=== PATIENT | female | born 1950 | race Caucasian/White ===

== ENCOUNTER 2016-11-22 13:58 | Emergency (ER) | payer OTHER ==
[~2016-11-22] VITALS: Ht 165.1 cm; Wt 78.3 kg
[2016-11-22 15:15] LABS: ADD MIUA? YES; BILIRUBIN NEGATIVE; BLOOD NEGATIVE; COLOR STRAW ((YELLOW)); GLUCOSE (STRIP) NEGATIVE; KETONES NEGATIVE; LEUKOCYTES TRACE; NITRITE NEGATIVE; PROTEIN (STRIP) NEGATIVE; SPECIFIC GRAVITY 1.006 (1.000-1.030); UROBILINOGEN 0.2 MG/DL (0.2-1.0)
[2016-11-22 15:20] LABS: BACTERIA RARE /HPF; EPITHELIAL CELLS RARE /HPF; MUCUS TRACE /LPF; RED BLOOD CELLS 0-5 /HPF (0-5); UCUL ADDED? NO; WHITE BLOOD CELLS 0-5 /HPF (0-5)
[2016-11-22 15:34] LABS: EOSINOPHIL (%) 1.8 % (0-5); EOSINOPHIL COUNT 0.1 K/uL (0-0.3); HEMATOCRIT 37.3 % (36.0-46.0); IMMATURE GRANULOCYTE (%) 0.4 % (0.0-0.7); LYMPHOCYTE COUNT 0.9 K/uL (1.0-2.8); MCH 30.6 PG (29.0-34.0); MCHC 33.8 G/DL (30.0-36.0); MCV 90.5 FL (83-99); MEAN PLAT.VOLUME 10.9 uM^3 (9.5-12.4); MONOCYTE (%) 10.1 % (3-12); MONOCYTE COUNT 0.5 K/uL (0-0.8); NEUTROPHIL (%) 66.6 % (45-76); PLATELET COUNT 207 K/uL (156-360); RBC DIS.WIDTH-CV 12.7 % (11.8-14.6); RBC DIS.WIDTH-SD 41.9 % (39-53); RED BLOOD COUNT 4.12 M/uL (3.80-5.20); WHITE BLOOD COUNT 4.5 K/uL (4.1-10.2)
[2016-11-22 15:44] LABS: CHLORIDE 108 mEq/L (99-109)
[2016-11-22 15:45] LABS: D-DIMER ELISA 0.19 mg/L FEU (< 0.57); POTASSIUM 4.1 mEq/L (3.7-5.4); SODIUM 140 mEq/L (136-147)
[2016-11-22 15:47] LABS: GLUCOSE 107 mg/dL (70-99)
[2016-11-22 15:48] LABS: ANION GAP 8 MEQ/L (2-14)
[2016-11-22 15:49] LABS: TOTAL BILIRUBIN 0.3 mg/dL (0.0-1.0)
[2016-11-22 15:50] LABS: ALKALINE PHOSPHATASE 79 IU/L (3-129); GFR ESTIMATE (CALCULATED) > 59 mL/min/
[2016-11-22 15:52] LABS: UREA NITROGEN (BUN) 13 mg/dL (9-23)
[2016-11-22 15:54] LABS: TROP-I INTERPRETATION NEGATIVE; TROPONIN-I < 0.01 ng/mL (0.0-0.30)
[2016-11-22 18:03] LABS: TROP-I INTERPRETATION NEGATIVE; TROPONIN-I < 0.01 ng/mL (0.0-0.30)
[2016-11-22 19:02] VITALS: BP 107/62
[2016-11-22] MEDS ORDERED: MELOXICAM7.5 MG PO (19:03)
== END 2016-11-22 19:05 | disposition home or self-care (01) ==
LOC: EME 13:58
PROVIDERS: Emergency Medicine
DX: R00.2 Palpitations (principal); E03.9 Hypothyroidism, unspecified
CPT/HCPCS: 71020; 80053; 81003; 84484; 85025; 85379; 93005; 99281; 99285; J7030